=== PATIENT | male | born 1980 | race African-American/Black ===

== ENCOUNTER 2017-01-18 16:14 | Emergency (ER) | payer BC ==
[~2017-01-18] VITALS: Ht 193 cm; Wt 100.2 kg
[2017-01-18 16:32] VITALS: BP_SYST 133
[2017-01-18] MEDS ORDERED: MORPHINE SULFATE 10 MG/ML VIAL IM ONE (18:00)
[2017-01-18] MEDS ORDERED: DIPHENHYDRAMINE INJ 50 MG/ML VIAL IM ONE (18:00)
[2017-01-18] MEDS ORDERED: CYCLOBENZAPRINE HCL 10 MG TABLET (FLEXERIL) PO ONE (18:00)
[2017-01-18 18:50] VITALS: BP_SYST 129
== END 2017-01-18 18:50 | disposition home or self-care (01) ==
LOC: SED 16:14
DX: S39.012A Strain of muscle, fascia and tendon of lower back, initial encounter (principal); R03.0 Elevated blood-pressure reading, without diagnosis of hypertension; X58.XXXA Exposure to other specified factors, initial encounter; Y93.89 Activity, other specified; Y92.89 Other specified places as the place of occurrence of the external cause; Y99.8 Other external cause status
CPT/HCPCS: 72131; 96372; 99284; J1200; J2270

== ENCOUNTER 2018-01-02 08:00 | Emergency (ER) | payer BC ==
[~2018-01-02] VITALS: Ht 193 cm; Wt 95.3 kg
[2018-01-02 08:00] VITALS: BP_SYST 149
[2018-01-02] MEDS ORDERED: NACL 0.9% 1,000 ML IV ONE (08:20)
[2018-01-02] MEDS ORDERED: ASPIRIN 81 MG TAB.CHEW PO ONE (08:30)
[2018-01-02] MEDS ORDERED: KETOROLAC TROMETHAMINE 30 MG VIAL IVP ONE (08:30)
[2018-01-02 08:32] LABS: ANION GAP 8 (5-15); CALCIUM 9.5 mg/dL (8.4-11.0); CHLORIDE 102 mmol/L (98-107); CREATININE 1.06 mg/dL (0.55-1.30); GLUCOSE 115 mg/dL (70-99); POTASSIUM 4.1 mmol/L (3.5-5.1); SODIUM SERUM 139 mmol/L (136-145); UREA NITROGEN, BLOOD 13 mg/dL (8-21)
[2018-01-02 08:33] LABS: BASOPHILS % (AUTO) 0.4 % (0.0-2.0); EOSINOPHILS % (AUTO) 0.5 % (0.0-4.0); HEMATOCRIT 45.1 % (36-54); HEMOGLOBIN 15.6 g/dL (14.0-18.0); LYMPHOCYTES # (AUTO) 0.8 K/uL (1.0-5.5); LYMPHOCYTES % (AUTO) 14.4 % (20.5-51.5); MEAN CORPUSCULAR HEMOGLOBIN 32 pg (27-31); MEAN CORPUSCULAR HGB CONC 35 % (32-36); MEAN CORPUSCULAR VOLUME 92 fL (79.0-98.0); MONOCYTES # (AUTO) 0.6 K/uL (0.0-1.0); MONOCYTES % (AUTO) 10.3 % (1.7-9.3); NEUTROPHILS % (AUTO) 74.4 % (40.0-70.0); PLATELET COUNT (AUTO) 223 K/uL (130-430); RED BLOOD CELL COUNT(AUTO) 4.91 MIL/uL (4.2-6.2); RED CELL DISTRIBUTION WIDTH 13.2 % (9.0-15.0); WHITE BLOOD COUNT (AUTO) 5.4 K/uL (4.8-10.8)
[2018-01-02 08:35] LABS: GFR AFRICAN AMERICAN 100 mL/min (>90)
[2018-01-02 08:41] LABS: ALANINE AMINOTRANSFERASE 25 U/L (12-78); ASPARTATE AMINOTRANSFERASE 24 U/L (10-37); TOTAL BILIRUBIN 0.6 mg/dL (0.0-1.0)
[2018-01-02 09:32] VITALS: BP_SYST 138
== END 2018-01-02 09:32 | disposition home or self-care (01) ==
LOC: SED 08:00
DX: R09.1 Pleurisy (principal); I10 Essential (primary) hypertension
CPT/HCPCS: 36415; 71045; 80053; 84484; 85025; 93005; 96374; 99285; J1885; J7030